=== PATIENT | female | born 1975 | race Caucasian/White ===

== ENCOUNTER 2022-03-27 13:23 | Emergency (ER) | payer MEDICAID ==
[~2022-03-27] VITALS: Ht 165.1 cm; Wt 89.4 kg
[2022-03-27 13:27] VITALS: BP 137/92
--- NOTE | 2022-03-27 15:13 | NUR ---
PT AMB TO ER BED 9
--- NOTE | 2022-03-27 15:15 | NUR ---
PT TAKEN TO XRAY VIA WHEELCHAIR
--- NOTE | 2022-03-27 15:23 | NUR ---
PT RETURNED TO ROOM FROM CT VIA WHEELCHAIR
--- NOTE | 2022-03-27 15:24 | NUR ---
46YO FEMALE PT C/O CHEST PAIN. PT STATES INCONSISTENT 10/10 TIGHT CHEST PAIN THAT RADIATES TO RIGHT ARM X3DAYS. PT STATES SOB WHEN IN MOST PAIN ,O2 CURRENTLY AT 98% ROOM AIR. PT DENIES N/V/D OR FEVER. PT DENIES TAKING MEDICATION TO RELIEF PAIN. PT STATES HAVING SIMILIAR SYMPTOMS 1 MONTH AGO AND HAD MILD RELIEF WHEN TAKING ASPIRIN. PT AAOX4, RESPIRATIONS EVEN AND UNLABORED, ALL VITALS WITHIN NORMAL RANGE. PT PUT ON MONITOR , BED RAILS UP X1 , BED AT LOWEST POSITION. ALL NEEDS MET AT THIS TIME MHX: ASTHMA NKA
[2022-03-27 15:39] LABS: BASOPHILS % (AUTO) 0.9 % (0.0-2.0); EOSINOPHILS # (AUTO) 0.4 K/uL (0-0.4); HEMATOCRIT 40.2 % (36-48); HEMOGLOBIN 13.1 g/dL (12.0-16.0); LYMPHOCYTES % (AUTO) 38.3 % (20.5-51.1); MEAN CORPUSCULAR HEMOGLOBIN 29 pg (27-31); MEAN CORPUSCULAR HGB CONC 33 g/dL (33-37); MEAN CORPUSCULAR VOLUME 89.5 fL (80-94); MONOCYTES # (AUTO) 0.6 K/uL (0.8-1.0); MONOCYTES % (AUTO) 10.7 % (1.7-9.3); NEUTROPHILS # (AUTO) 2.2 K/uL (1.8-7.7); NEUTROPHILS % (AUTO) 43.1 % (42.2-75.2); PLATELET COUNT (AUTO) 238 K/uL (140-450); RED BLOOD CELL COUNT(AUTO) 4.49 MIL/uL (4.20-5.40); RED CELL DISTRIBUTION WIDTH 13.4 % (11.6-13.7); WHITE BLOOD COUNT (AUTO) 5.2 K/uL (4.8-10.8)
[2022-03-27 15:55] LABS: ALBUMIN 3.8 g/dL (3.4-5.0); ANION GAP 8.8 (8-16); CARBON DIOXIDE 29.2 mmol/L (21-32); CREATININE 0.8 mg/dL (0.6-1.3); TOTAL BILIRUBIN 0.5 mg/dL (0.0-1.0)
[2022-03-27] MEDS ORDERED: ALBU0.0912 IH (16:16)
[2022-03-27] MEDS ORDERED: TRAM50TA3 PO (16:16)
[2022-03-27 16:43] VITALS: BP 123/79
--- NOTE | 2022-03-27 16:44 | NUR ---
Patient discharged with v/s stable. Written and verbal after care instructions given and explained. Patient alert, oriented and verbalized understanding of instructions. Ambulatory with steady gait. All questions addressed prior to discharge. ID band removed. Patient advised to follow up with PMD. Rx of NAPROXEN AND ALBUTEROL given. Patient educated on indication of medication including possible reaction and side effects. Opportunity to ask questions provided and answered.
== END 2022-03-27 16:44 | disposition home or self-care (01) ==
LOC: MED 13:23
DX: R07.89 Other chest pain (principal); M25.511 Pain in right shoulder; J45.909 Unspecified asthma, uncomplicated; Z90.49 Acquired absence of other specified parts of digestive tract; Z79.899 Other long term (current) drug therapy
CPT/HCPCS: 36415; 71045; 73030; 80053; 83880; 84484; 85025; 93005; 99285

== ENCOUNTER 2022-08-28 08:51 | Emergency (ER) | payer MEDICAID ==
[~2022-08-28] VITALS: Ht 165.1 cm; Wt 90.3 kg
[~2022-08-28 08:51] MED LIST: ALBU0.0912 IH; TRAM50TA3 PO
[2022-08-28 09:04] VITALS: BP 132/80
--- NOTE | 2022-08-28 09:37 | NUR ---
X-Ray at bedside.
--- NOTE | 2022-08-28 09:37 | NUR ---
47 Y/O FEMALE C/O 06/06 SORE THROAT, COUGH, RUNNY NOSE , CONGESTION X 4 DAYS. STATES THAT SHE HAS GREEN COLORED SPUTUM, NO NASAL FLARING, ACCESSORY MUSCLE USE. DENIES ANY SOB, CP PMH: ASTHMA NKA
[2022-08-28] MEDS ORDERED: BENZ100C6 PO (10:52)
[2022-08-28 11:07] VITALS: BP 132/80
--- NOTE | 2022-08-28 11:08 | NUR ---
Patient discharged with v/s stable. Written and verbal after care instructions ABOUT UPPER RESPIRATORY INFECTION AND INFLUENZA given and explained. Patient alert, oriented and verbalized understanding of instructions. Ambulatory with steady gait. All questions addressed prior to discharge. ID band removed. Patient advised to follow up with PMD. Rx of BENZONATATE given. Patient educated on indication of medication including possible reaction and side effects. Opportunity to ask questions provided and answered.
== END 2022-08-28 11:08 | disposition home or self-care (01) ==
LOC: MED 08:51
DX: J10.1 Influenza due to other identified influenza virus with other respiratory manifestations (principal); Z20.822 Contact with and (suspected) exposure to COVID-19; J45.909 Unspecified asthma, uncomplicated
CPT/HCPCS: 71045; 99284

== ENCOUNTER 2022-10-10 07:57 | Emergency (ER) | payer MEDICAID ==
[~2022-10-10] VITALS: Ht 165.1 cm; Wt 91.6 kg
[~2022-10-10 07:57] MED LIST changes: +BENZ100C6 PO
[2022-10-10 08:10] VITALS: BP 139/67
[2022-10-10] MEDS ORDERED: NAPR-54 PO (09:20)
[2022-10-10] MEDS: HYDROcodone/APAP 5/325 MG 1 TAB TAB PO ONE (09:44)
== END 2022-10-10 09:43 | disposition home or self-care (01) ==
LOC: MED 07:57
DX: S92.512A Displaced fracture of proximal phalanx of left lesser toe(s), initial encounter for closed fracture (principal); J45.909 Unspecified asthma, uncomplicated; W22.8XXA Striking against or struck by other objects, initial encounter; Y93.89 Activity, other specified; Y92.89 Other specified places as the place of occurrence of the external cause; Y99.8 Other external cause status
CPT/HCPCS: 73660; 99283

== ENCOUNTER 2024-08-17 11:15 | Emergency (ER) | payer MEDICAID ==
[~2024-08-17] VITALS: Ht 165.1 cm; Wt 91.9 kg
[~2024-08-17 11:15] MED LIST changes: +CEPH-588 PO; +NAPR-337 PO
[2024-08-17 11:28] VITALS: BP 124/81; PULSE 89; RESP 16; TEMP 97.9; O2SAT 96
[2024-08-17] MEDS: DICYCLOMINE 20 MG/2 ML VIAL IM ONE (12:00)
[2024-08-17 12:06] LABS: APPEARANCE,URINE CLEAR (CLEAR); BILIRUBIN,URINE NEGATIVE (NEGATIVE); BLOOD, URINE NEGATIVE (NEGATIVE); COLOR,URINE YELLOW (YELLOW); LEUKOCYTE ESTERASE ,URINE NEGATIVE (NEGATIVE); NITRITE, URINE NEGATIVE (NEGATIVE); PROTEIN,URINE NEGATIVE (NEGATIVE); UGLUCOSE NEGATIVE (NEGATIVE)
[2024-08-17] MEDS ORDERED: DOCU-299 PO (13:06)
[2024-08-17] MEDS ORDERED: BEN10 PO (13:07)
[2024-08-17] MEDS ORDERED: MIRABULK PO (13:07)
[2024-08-17 13:13] VITALS: BP 124/81; PULSE 89; RESP 16; TEMP 97.9; O2SAT 96
== END 2024-08-17 13:14 | disposition home or self-care (01) ==
LOC: MED 11:15
DX: K59.00 Constipation, unspecified (principal); J45.909 Unspecified asthma, uncomplicated; Z98.890 Other specified postprocedural states; Z79.899 Other long term (current) drug therapy
CPT/HCPCS: 74018; 81003; 96372; 99284; J0500